=== PATIENT | male | born 1990 | race Caucasian/White ===

== ENCOUNTER 2017-03-30 16:16 | Emergency (ER) | payer OTHER | END 2017-03-30 19:28 | disposition home or self-care (01) | LOC: FER 16:16 | DX: S93.401A Sprain of unspecified ligament of right ankle, initial encounter (principal); F17.210 Nicotine dependence, cigarettes, uncomplicated; W19.XXXA Unspecified fall, initial encounter; Y92.89 Other specified places as the place of occurrence of the external cause; Y99.0 Civilian activity done for income or pay | CPT/HCPCS: 73610; 99283 ==

== ENCOUNTER 2020-09-15 08:08 | Emergency (ER) | payer OTHER ==
[~2020-09-15 08:08] MED LIST: BENADRYL25 M1 PO; BENADRYL25 MG PO; EFFEXOR XR75 MG PO; EPIPEN 2-P0.3 MG/0.3 SC; FLEXERIL10 MG PO; KETOROLAC TROME10 MG PO; MEDROL 4MG DOSEP4 MG PO; MOTRIN600 MG PO; NAPROXEN500 MG PO; ONDANSETRON ODT4 MG PO/SL; PEPCID AC20 MG PO; PERCOCET 5-3251 EACH PO; PREDNISONE 20MG20 MG PO; PRILOSEC20 MG PO; RECTICARE30 GM TOP; STOOL SOFTENER100 MG PO; TRAZODONE 100M100 MG PO; VOLTAREN **OUT75 MG PO; ZOFRAN4 MG PO; ZPAK PO
[2020-09-15] MEDS ORDERED: MEDROL 4MG DOSEP4 MG PO (10:43)
[2020-09-15] MEDS ORDERED: NAPROXEN500 MG PO (10:43)
[2020-09-15] MEDS ORDERED: ZPAK PO (10:43)
[2020-09-15] MEDS ORDERED: VENTOLIN HFA18 GM INH (10:43)
[2020-09-15] MEDS ORDERED: TESSALON PERLE100 M1 PO (10:43)
== END 2020-09-15 11:19 | disposition home or self-care (01) ==
LOC: FER 08:08
DX: J40 Bronchitis, not specified as acute or chronic (principal); F17.210 Nicotine dependence, cigarettes, uncomplicated; Z20.822 Contact with and (suspected) exposure to COVID-19
CPT/HCPCS: 71250; U0002

== ENCOUNTER 2021-04-25 20:45 | Emergency (ER) | payer OTHER ==
[~2021-04-25 20:45] MED LIST changes: +TESSALON PERLE100 M1 PO; +VENTOLIN HFA18 GM INH
[2021-04-26 00:29] LABS: CORONAVIRUS 2019 SARS-COV-2 NEGATIVE (NEGATIVE); INFLUENZA A NAA NEGATIVE (NEGATIVE)
[2021-04-26] MEDS ORDERED: ZOFRAN4 M1 PO (00:50)
== END 2021-04-26 01:00 | disposition home or self-care (01) ==
LOC: FER 20:45
PROVIDERS: Emergency Medicine
DX: J06.9 Acute upper respiratory infection, unspecified (principal); R51.9 Headache, unspecified; Z20.822 Contact with and (suspected) exposure to COVID-19
CPT/HCPCS: J0780; J1200; J1885; J2405; J7030; U0002

== ENCOUNTER 2021-08-12 12:39 | Emergency (ER) | payer OTHER ==
[~2021-08-12 12:39] MED LIST changes: +ZOFRAN4 M1 PO
[2021-08-12 17:01] LABS: BASOPHIL 0.3 % (0-2); EOSINOPHIL 0.2 % (0-5); HCT 48.1 % (42.0-52.0); HGB 17.1 g/dl (13.2-18.0); LYMPHOCYTE 9.8 % (15-48); MCH 31.7 pg (25.0-31.0); MCHC 35.6 g/dL (32.0-36.0); MCV 89.1 fL (78.0-100.0); MONOCYTE 7.3 % (0-12); MPV 9.9 fL (6.0-9.5); NEUTROPHIL 82.1 % (41-80); NRBC 0; PLT 267 K/uL (150-400); RDW 12.5 % (11.5-14.0); WBC 12.2 K/uL (4.0-10.5)
[2021-08-12 17:02] LABS: BILIRUBIN NEGATIVE (NEGATIVE); BLOOD NEGATIVE Ery/uL (NEGATIVE); CLARITY CLEAR (CLEAR); COLOR YELLOW (YELLOW); GLUCOSE (U) NORMAL (NORMAL); LEUKOCYTES NEGATIVE Leu/uL (NEGATIVE); NITRITE NEGATIVE (NEGATIVE); PROTEIN TRACE (LOW) mg/dL (NEGATIVE); SPECIFIC GRAVITY >=1.030 (1.001-1.030); UROBILINOGEN 0.2 mg/dL (0.2-1.0)
[2021-08-12 17:07] LABS: AMPHETAMINES NEGATIVE (NEGATIVE); BARBITURATES NEGATIVE (NEGATIVE); ECSTASY (MDMA) NEGATIVE (NEGATIVE); MARIJUANA (THC) NEGATIVE (NEGATIVE); METHADONE NEGATIVE (NEGATIVE); OPIATES NEGATIVE (NEGATIVE); OXYCODONE NEGATIVE (NEGATIVE)
[2021-08-12 17:12] LABS: ALBUMIN 4.1 g/dL (3.4-5.0); BILIRUBIN - TOTAL 0.6 mg/dL (0.2-1.0); BUN/CREAT RATIO (CALC) 12.1 RATIO; CREATININE 0.99 mg/dL (0.67-1.17); GLOBULIN (CALCULATION) 3.1 g/dL; POTASSIUM 3.6 mmol/L (3.5-5.1); TOTAL PROTEIN 7.2 g/dL (6.4-8.2)
[2021-08-12 17:14] LABS: MUCOUS TRACE
[2021-08-12 18:04] LABS: CORONAVIRUS 2019 SARS-COV-2 NEGATIVE (NEGATIVE); INFLUENZA A NAA NEGATIVE (NEGATIVE)
[2021-08-12] MEDS ORDERED: ONDANSETRON HCL4 MG PO (19:40)
[2021-08-12] MEDS ORDERED: BENTYL10 MG PO (19:40)
== END 2021-08-12 19:55 | disposition home or self-care (01) ==
LOC: FER 12:39
PROVIDERS: Nurse Practitioner Family
DX: R10.84 Generalized abdominal pain (principal); R11.0 Nausea; F17.210 Nicotine dependence, cigarettes, uncomplicated; Z20.822 Contact with and (suspected) exposure to COVID-19
CPT/HCPCS: 36415; 80053; 80305; 81001; 85025; J1885; J2270; J2405; J7030; Q9967; U0002